=== PATIENT | female | born 1995 | race Caucasian/White ===

== ENCOUNTER 2017-06-16 17:23 | Emergency (ER) | payer OTHER ==
[~2017-06-16] VITALS: Ht 152.4 cm; Wt 57.8 kg
[~2017-06-16 17:23] MED LIST: ATARAX,VISTARIL50 MG PO; Children's Advil Sus PO; Chromagen, Feogen, M PO; FLINTSTONES CO1 EAC1 PO; ROBITUSSIN100 MG/5 M PO; VICODIN 5-3001 EACH PO; no home meds
[2017-06-16 18:11] LABS: HEMATOCRIT 45.1 % (36.0-46.0); MCH 31.5 PG (29.0-34.0); MCHC 36.6 G/DL (30.0-36.0); MCV 86.1 FL (83-99); MEAN PLAT.VOLUME 10.5 uM^3 (9.5-12.4); PLATELET COUNT 271 K/uL (156-360); RBC DIS.WIDTH-CV 10.7 % (11.8-14.6); RBC DIS.WIDTH-SD 33.9 % (39-53); RED BLOOD COUNT 5.24 M/uL (3.80-5.20); WHITE BLOOD COUNT 11.6 K/uL (4.1-10.2)
[2017-06-16 18:19] LABS: CHLORIDE 103 mEq/L (99-109); POTASSIUM 3.4 mEq/L (3.7-5.4); SODIUM 136 mEq/L (136-147)
[2017-06-16 18:22] LABS: GLUCOSE 67 mg/dL (70-99)
[2017-06-16 18:23] LABS: ANION GAP 17 MEQ/L (2-14); TOTAL BILIRUBIN 1.2 mg/dL (0.0-1.0)
[2017-06-16 18:25] LABS: ALKALINE PHOSPHATASE 73 IU/L (3-129); GFR ESTIMATE (CALCULATED) > 59 mL/min/
[2017-06-16 18:26] LABS: UREA NITROGEN (BUN) 7 mg/dL (9-23)
[2017-06-16 18:28] LABS: ADD MIUA? YES; BILIRUBIN NEGATIVE; BLOOD NEGATIVE; COLOR AMBER ((YELLOW)); GLUCOSE (STRIP) NEGATIVE; KETONES 80; LEUKOCYTES LARGE; NITRITE NEGATIVE; PROTEIN (STRIP) 30; SPECIFIC GRAVITY 1.025 (1.000-1.030)
[2017-06-16 18:44] LABS: BACTERIA NONE SEEN /HPF; EPITHELIAL CELLS 1+ /HPF; MUCUS TRACE /LPF; RED BLOOD CELLS 0-5 /HPF (0-5); UCUL ADDED? NO; WHITE BLOOD CELLS 0-5 /HPF (0-5)
[2017-06-16] MEDS ORDERED: ZOFRAN ODT4 MG PO (20:44)
[2017-06-16 21:06] VITALS: BP 113/56
== END 2017-06-16 21:07 | disposition home or self-care (01) ==
LOC: EME 17:23
PROVIDERS: Physician Assistant Medical
DX: O21.9 Vomiting of pregnancy, unspecified (principal); Z3A.08 8 weeks gestation of pregnancy; Z87.891 Personal history of nicotine dependence
CPT/HCPCS: 76801; 80053; 81003; 84702; 85027; 99281; 99284; J2405; J7030

== ENCOUNTER → 2017-08-26 | Outpatient (CLI) | payer OTHER ==
[~2017-08-26] VITALS: Ht 154.9 cm; Wt 60.0 kg
[~2017-08-26] MED LIST changes: +FLINTSTONES1 EACH PO; +ZOFRAN ODT4 MG PO
[2017-08-26 17:06] VITALS: BP 102/55
== END | disposition home or self-care (01) ==
LOC: IVINF 16:48
DX: O26.899 Other specified pregnancy related conditions, unspecified trimester (principal); N93.9 Abnormal uterine and vaginal bleeding, unspecified; Z3A.00 Weeks of gestation of pregnancy not specified; Z67.91 Unspecified blood type, Rh negative
CPT/HCPCS: 96372; J2790

== ENCOUNTER → 2017-11-05 | Outpatient (CLI) | payer OTHER ==
[~2017-11-05] VITALS: Ht 154.9 cm; Wt 69.9 kg
[2017-11-05 13:38] VITALS: BP 118/58
== END | disposition home or self-care (01) ==
LOC: IVINF 13:00
DX: Z34.80 Encounter for supervision of other normal pregnancy, unspecified trimester (principal); Z3A.00 Weeks of gestation of pregnancy not specified; Z67.91 Unspecified blood type, Rh negative
CPT/HCPCS: 96372; J2790

== ENCOUNTER 2017-11-28 22:16 | Emergency (ER) | payer OTHER ==
[~2017-11-28] VITALS: Ht 152.4 cm; Wt 73.5 kg
[2017-11-28 23:44] LABS: APPEARANCE CLEAR ((CLEAR)); BILIRUBIN NEGATIVE; BLOOD NEGATIVE; COLOR STRAW ((YELLOW)); GLUCOSE (STRIP) NEGATIVE; KETONES NEGATIVE; LEUKOCYTES MODERATE; NITRITE NEGATIVE; PROTEIN (STRIP) NEGATIVE; UROBILINOGEN 0.2 MG/DL (0.2-1.0)
[2017-11-28 23:46] LABS: HEMATOCRIT 34.4 % (36.0-46.0); HEMOGLOBIN 12.2 G/DL (11.9-15.5); MCH 30.1 PG (29.0-34.0); MCHC 35.5 G/DL (30.0-36.0); MCV 84.9 FL (83-99); PLATELET COUNT 216 K/uL (156-360); RBC DIS.WIDTH-CV 11.9 % (11.8-14.6); RED BLOOD COUNT 4.05 M/uL (3.80-5.20); WHITE BLOOD COUNT 10.2 K/uL (4.1-10.2)
[2017-11-28 23:47] LABS: BACTERIA NONE SEEN /HPF; EPITHELIAL CELLS 1+ /HPF; MUCUS TRACE /LPF; RED BLOOD CELLS 0-5 /HPF (0-5); UCUL ADDED? NO; WHITE BLOOD CELLS 0-5 /HPF (0-5)
[2017-11-28 23:55] LABS: CHLORIDE 108 mEq/L (99-109); POTASSIUM 3.7 mEq/L (3.7-5.4); SODIUM 139 mEq/L (136-147)
[2017-11-28 23:57] LABS: GLUCOSE 78 mg/dL (70-99)
[2017-11-29 00:01] LABS: CREATININE 0.6 mg/dL (0.6-1.3); GFR ESTIMATE (CALCULATED) > 59 mL/min/
[2017-11-29 00:02] LABS: UREA NITROGEN (BUN) 3 mg/dL (9-23)
[2017-11-29 00:32] VITALS: BP 120/63
== END 2017-11-29 00:35 | disposition home or self-care (01) ==
LOC: EME 22:16
PROVIDERS: Physician Assistant
DX: O99.513 Diseases of the respiratory system complicating pregnancy, third trimester (principal); R06.02 Shortness of breath; Z3A.32 32 weeks gestation of pregnancy; Z87.891 Personal history of nicotine dependence; Z86.79 Personal history of other diseases of the circulatory system
CPT/HCPCS: 71045; 80048; 81003; 85027; 93005; 99281; 99284

== ENCOUNTER 2018-01-25 08:01 | Inpatient (IN) | payer OTHER ==
[2018-01-25] VITALS (15 sets, daily range): BP systolic 109–140; BP diastolic 53–80
[~2018-01-25] VITALS: Ht 154.9 cm; Wt 76.8 kg
[2018-01-25 09:47] LABS: BASOPHIL (%) 0.4 % (0-1); EOSINOPHIL COUNT 0.1 K/uL (0-0.3); HEMATOCRIT 33.5 % (36.0-46.0); HEMOGLOBIN 11.6 G/DL (11.9-15.5); IMMATURE GRANULOCYTE (%) 0.4 % (0.0-0.7); LYMPHOCYTE (%) 17.8 % (15-42); MCH 28.4 PG (29.0-34.0); MCHC 34.6 G/DL (30.0-36.0); MCV 82.1 FL (83-99); MONOCYTE (%) 8.1 % (3-12); MONOCYTE COUNT 0.9 K/uL (0-0.8); NEUTROPHIL (%) 72.3 % (45-76); NEUTROPHIL COUNT 8.1 K/uL (1.8-6.4); PLATELET COUNT 191 K/uL (156-360); RBC DIS.WIDTH-CV 13.5 % (11.8-14.6); RBC DIS.WIDTH-SD 39.7 % (39-53); RED BLOOD COUNT 4.08 M/uL (3.80-5.20); WHITE BLOOD COUNT 11.2 K/uL (4.1-10.2)
[2018-01-25 10:04] LABS: AMPHETAMINE NEGATIVE (500 ng/mL); BARBITURATES NEGATIVE (200 ng/mL); BENZODIAZEPINES NEGATIVE (150 ng/mL); BUPRENORPHINE NEGATIVE (10 ng/mL); COCAINE NEGATIVE (150 ng/mL); METHADONE NEGATIVE (200 ng/mL); METHAMPHETAMINE NEGATIVE (500 ng/mL); OPIATES (MORPHINE) NEGATIVE (100 ng/mL); OXYCODONE NEGATIVE (100 ng/mL); PHENCYCLIDINE NEGATIVE (25 ng/mL); PROPOXYPHENE NEGATIVE (300 ng/mL); THC CANNABINOIDS NEGATIVE (50 ng/mL); TRICYCLIC ANTIDEPRESSANTS NEGATIVE (300 ng/mL)
[2018-01-26 07:43] LABS: BASOPHIL (%) 0.4 % (0-1); BASOPHIL COUNT 0.1 K/uL (0-0.1); EOSINOPHIL (%) 1.3 % (0-5); EOSINOPHIL COUNT 0.2 K/uL (0-0.3); HEMATOCRIT 28.2 % (36.0-46.0); IMMATURE GRANULOCYTE (%) 0.3 % (0.0-0.7); LYMPHOCYTE (%) 20.7 % (15-42); LYMPHOCYTE COUNT 2.8 K/uL (1.0-2.8); MCH 28.3 PG (29.0-34.0); MCHC 33.7 G/DL (30.0-36.0); MCV 83.9 FL (83-99); MONOCYTE (%) 7.9 % (3-12); MONOCYTE COUNT 1.1 K/uL (0-0.8); NEUTROPHIL (%) 69.4 % (45-76); NEUTROPHIL COUNT 9.3 K/uL (1.8-6.4); PLATELET COUNT 198 K/uL (156-360); RBC DIS.WIDTH-CV 13.7 % (11.8-14.6); RBC DIS.WIDTH-SD 41.1 % (39-53); RED BLOOD COUNT 3.36 M/uL (3.80-5.20); WHITE BLOOD COUNT 13.4 K/uL (4.1-10.2)
[2018-01-26 07:44] LABS: HEMOGLOBIN 9.5 G/DL (11.9-15.5)
[2018-01-26] MEDS ORDERED: FERRETTS325 MG PO (10:59)
[2018-01-26] MEDS ORDERED: MOTRIN800 MG PO (11:02)
== END 2018-01-26 20:30 | disposition home or self-care (01) | DRG 775 ==
LOC: LDRP-OP 08:01 → 2WEST 08:02 → LDRP-OP 12:51 → 2WEST 16:24 → LDRP-OP 02-16 15:43
PROVIDERS: Advanced Practice Midwife; Obstetrics & Gynecology Obstetrics
DX: O70.1 Second degree perineal laceration during delivery (principal); D62 Acute posthemorrhagic anemia; E66.3 Overweight; O99.02 Anemia complicating childbirth; Z37.0 Single live birth; Z3A.40 40 weeks gestation of pregnancy; Z87.891 Personal history of nicotine dependence; O76 Abnormality in fetal heart rate and rhythm complicating labor and delivery; R87.612 Low grade squamous intraepithelial lesion on cytologic smear of cervix (LGSIL); Z68.26 Body mass index [BMI] 26.0-26.9, adult; O36.0930 Maternal care for other rhesus isoimmunization, third trimester, not applicable or unspecified
CPT/HCPCS: 83030; 85025; 86850; 86900; 86901; C1755; J0595; J2790; J7120